=== PATIENT | female | born 1950 | race Caucasian/White ===

== ENCOUNTER 2017-12-05 21:40 | Emergency (ER) | payer BC, OTHER ==
[~2017-12-05] VITALS: Ht 160 cm; Wt 75.3 kg
[~2017-12-05 21:40] MED LIST: PREMARIN; PROGESTERONE; SULF800T23 PO
[2017-12-05 22:07] VITALS: TEMP 37.2; Ht 160 cm; Wt 75.3 kg
[2017-12-05] MEDS ORDERED: AMOXICILLIN/CLAVULANATE TAB 875 MG TAB PO ONE (22:30)
--- NOTE | 2017-12-05 22:54 | DIAGNOSTIC IMAGING REPORT ---
RIGHT HAND 3 VIEWS HISTORY: bite on R hand COMPARISON: None. FINDINGS: There is no fracture or dislocation. Mild dorsal soft tissue swelling. No radiopaque foreign bodies. IMPRESSION: No fractures. Electronically signed by: Kwadwo Lazar M.D. 12/05/2017 10:53 PM Dictated Date/Time: 12/05/2017 10:52 PM
--- NOTE | 2017-12-05 23:04 | EMERGENCY ROOM VISIT NOTE ---
ED Visit Note First contact with patient: 22:16 CHIEF COMPLAINT: Animal bite HISTORY OF PRESENT ILLNESS: This 67-year-old female presents the emergency department with complaints of a cat bite to her right hand that occurred prior to arrival. The patient said that her cat bit her on the hand 3 times. She does complain of pain over the dorsal aspect of the right hand. She denies any fever or chills. She cleaned the wound with soap and water and apply Neosporin. The cat is up-to-date on his vaccines. Tetanus shot is up-to-date. She is taking naproxen for pain REVIEW OF SYSTEMS: A 6 system review of systems was completed with positives and pertinent negatives listed in the HPI. ALLERGIES: Macrobid, sulfa MEDICATIONS: Reviewed PMH: Otherwise healthy PHYSICAL EXAM: Vital Signs reviewed, see Nurse's notes, vital signs stable. GENERAL: 67-year-old female, awake, alert, well appearing, no acute distress. Non toxic in appearance. MUSCULOSKELETAL: 4 puncture wounds noted to the dorsal aspect of the right hand. One puncture wound noted to the palmar aspect of the right hand. Normal flexion and extension against resistance. Coconut Cooker strength 5/5. Radial pulse +2. Capillary refill is less than 2 seconds. Normal sensation. No significant erythema or edema surrounding the puncture wounds. NEURO: No sensory or motor deficits noted over all dermatomes and myotomes tested. EMERGENCY DEPARTMENT COURSE AND DECISION MAKING: I examined the patient. An x-ray of the right hand was obtained. IMPRESSION: No fractures. Electronically signed by: Kwadwo Lazar M.D. 12/05/2017 10:53 PM The wound was cleansed with chlorhexidine. She was given 1 dose of Augmentin. Discharge instructions were reviewed, and they were discharged in good condition DIAGNOSIS: Cat bite DISCHARGED INSTRUCTIONS: Please take the entire course of antibiotics Please clean the wound twice daily with soap and water. Apply Neosporin. Keep a bandage on the wounds for the first 2 days. Then, please leave open to air. Please have the wounds rechecked in the next 3-5 days. Do not hesitate to return to the emergency department with any new, worsening or concerning symptoms; especially, increased redness, swelling, red streaking, pain or fever This chart was completed in part utilizing [employer] Voice Recognition software. Attempts were made to minimize the grammatical errors, random word insertions, pronoun errors and incomplete sentences. Any formal questions or concerns about the content, text or information contained within the body of this dictation should be directly addressed to the provider for clarification.
[2017-12-05] MEDS ORDERED: AMOX875T PO (23:06)
[2017-12-05 23:12] VITALS: BP 136/90; PULSE 84; O2SAT 99
== END 2017-12-05 23:13 | disposition home or self-care (01) ==
LOC: C.EDB 21:41 → C.EDD 23:13
DX: S61.451A Open bite of right hand, initial encounter (principal); W55.01XA Bitten by cat, initial encounter

== ENCOUNTER 2022-11-28 05:46 | Observation (INO) ==
--- NOTE | 2022-10-19 14:30 | PAT Medication Instructions ---
Medication Instructions Date of Service October 19, 2022 Home Medications ibuprofen 200 mg tablet 200 mg PO Q6H PRN Pain omeprazole 20 mg tablet,delayed release 20 mg PO QAM PRN Acid Reflux fluticasone propionate 50 mcg/actuation nasal spray,suspension 1 spray intranasal DAILY PRN Nasal Congestion glucosamine-chondroitin 250 mg-200 mg tablet (Osteo Bi-Flex) 1 tab PO BID ASK your surgeon for instructions ibuprofen 200 mg tablet 200 mg PO Q6H PRN Pain STOP taking 2 weeks before surgery glucosamine-chondroitin 250 mg-200 mg tablet (Osteo Bi-Flex) 1 tab PO BID Take morning of surgery With a small sip of water, OTHERWISE NOTHING TO EAT OR DRINK AFTER MIDNIGHT: omeprazole 20 mg tablet,delayed release 20 mg PO QAM PRN Acid Reflux (if needed) fluticasone propionate 50 mcg/actuation nasal spray,suspension 1 spray intranasal DAILY PRN Nasal Congestion (if needed) Other Notes If you have any questions please call us at [phone] or [phone] or [phone] or [phone]
--- NOTE | 2022-10-24 10:00 | Anesthesiology Consultation ---
Date of Service October 24, 2022 Assessment & Plan (1) Encounter for pre-operative examination: Chart Review Chart Review: Acceptable Risk for Surgery and Patient seen in Pre Admission Testing - Discussed with Dr. Mason. Pt currently scheduled as 23 hour observation - if surgeon decided to change patient to Outpatient Joint- patient is an acceptable candidate from anesthesia standpoint, pending patient is motivated, has good support and surgeon's office completes [facility] preop requirements. Per PAT appt on 10/24/22, patient denies any recent travel or large group activities. Pt is vaccinated for Covid. Pt exposed to friend on 10/12/22 that tested Covid positive 10/18/22. Pt has had no symptoms (has been >10 days since exposure). Will leave to surgeon's discretion if preop Covid testing needed. Educated on importance of using Covid precautions one week prior to surgery Left knee arthroscopy, partial medial and lateral meniscectomy, possible loose body removal 02/28/22 (at [facility]) = Done under [place] with LMA #4. Atraumatic attempt. Teaching & Discussion Pre-Anesthesia Teaching/Discussion Notes: Instructed NPO after midnight before surgery,except medications with 15 cc of water. Medication instructions provided according to the PAT guidelines. History Surgery Operation Date: 11/28/22 09:25 Proposed Procedures p Left Total Knee Arthroplasty - Neftali Johnson DO Height/Weight Height: 5 ft 8 in Weight: 73.9 kg Allergies Allergy/AdvReac Type Severity Reaction Status Date / Time nitrofurantoin AdvReac Mild Nausea/ Verified 10/19/22 12:48 Headache sulfamethoxazole AdvReac Mild Nausea/ Verified 10/19/22 12:48 [From Bactrim] Headache trimethoprim [From Bactrim] AdvReac Mild Nausea/ Verified 10/19/22 12:48 Headache Medications Home Medications Medication Instructions Recorded Confirmed Last Taken ibuprofen 200 mg tablet 200 mg PO Q6H PRN Pain 10/08/20 10/19/22 02/25/22 omeprazole 20 mg tablet,delayed 20 mg PO QAM PRN Acid Reflux 02/24/22 10/19/22 02/27/22 release fluticasone propionate 50 1 spray intranasal DAILY PRN Nasal 10/19/22 10/19/22 Unknown mcg/actuation nasal Congestion spray,suspension glucosamine-chondroitin 250 mg-200 1 tab PO BID 10/19/22 10/19/22 Unknown mg tablet (Osteo Bi-Flex) Past Medical History Medical History (Updated 10/24/22 @ 09:57 by Josephine Costa PA-C) Acid reflux Well controlled and stable Adenoma HX THRYOID ADENOMA- S/P REMOVAL ()- No issues since that time Varicose veins of both lower extremities Exercise / Class Metabolic Activity II 4-5 Yardwork/Stairs/Walk up hill (one flight of stairs - no chest pain or SOB ) Past Family History Family History Other No family history of adverse response to anesthesia Past Surgical History Surgical History History of cataract surgery R&L History of colonoscopy History of foot surgery R&L History of thyroidectomy PARTIAL History of tubal ligation History of vascular surgery "PHLEBECTOMY" - LEFT LEG S/P left knee arthroscopy p Left Knee Arthroscopy, Partial Medial and Lateral Meniscectomy, Extensive Debridement DOS 02/28/2022 Past Anesthesia History No Hx of Anesthesia Complications and No Family Hx of Anesthesia Complications History of PONV No Hx of PONV and No Hx of Motion Sickness Social History Smoking Status: Former smoker tobacco type: cigarettes Do You Dip or Chew Tobacco: No Smoking End Date: quit 2010 Hx Alcohol Use: Yes alcohol intake frequency: holidays/special occasions only Hx Substance Use: No substance use type: does not use Review of Systems Hx of snoring - no witnessed apnea- no hx of sleep study Patient denies chest pain, shortness of breath, dyspnea on exertion, cough, wheezing, palpitations. No hx of seizures, stroke, HI. No hx of blood clots or blood transfusions Physical Exam Vital Signs VITALS BP 98/68 (manually- baseline for patient- denies dizziness or syncope) P 81 TEMP 97.3 SP02 96% RESP16 Constitutional no acute distress ENMT Mouth: no TMJ clicking Thyromental Distance: > or= 3.5 Finger Breadths (3.5) Mallampati Class: I Neck + limited neck extension Respiratory normal respiratory effort; no respiratory distress Auscultation: lungs clear to auscultation bilaterally; no wheezes Cardiovascular Rate/Rhythm: regular rate and regular rhythm Heart Sounds: no murmur Vessels: no carotid bruit Musculoskeletal Spine: + pain with cervical ROM Extremities: extremities normal to inspection Psychiatric Orientation: alert Lab Results Anesthesia Preop Results Results Anesthesia Widget: WBC 6.20 K/ul (4.8-10.8) 10/24/22 Hgb 14.4 g/dl (12.0-16.0) 10/24/22 Hct 43.7 % (34.1-44.9) 10/24/22 Plt 244 K/uL (130-400) 10/24/22 Na 143 mmol/L (136-145) 10/24/22 K 4.0 mmol/L (3.5-5.1) 10/24/22 Cl 110 mmol/L (98-107) H 10/24/22 CO2 27 mmol/L (21-32) 10/24/22 BUN 23 mg/dl (6-23) 10/24/22 Creat 1.07 mg/dl (0.6-1.2) 10/24/22 Glucose Level 81 mg/dl (70-99(Fasting)) 10/24/22 PT 10.9 Seconds (9.0-12.0) 10/24/22 PTT 27.3 Seconds (21.0-31.0) 10/24/22 INR 1.0 (0.9-1.1) 10/24/22 Blood Type B Positive 10/24/22 Antibody Screen NEGATIVE 10/24/22 Testing Electrocardiogram Date: 02/09/22 Findings: + SB @ (59bpm ) Otherwise normal EKG per cardio. Chest X-Ray Date: 10/24/22 Findings: + NAD COVID-19 Risk Screen Screening Information COVID-19 Screen Date: 10/24/22 Exposure 21 Days Family/Household +COVID Last 21 Days: No Exposure 10 Days Any COVID Exposure Last 10 Days: No Symptoms Last 10 Days Experienced COVID Sx Last 10 Days: No + COVID 0-90 Days COVID + in Last 0-90 Days: No Risk Plan COVID Risk Plan: No Risk Identified Patient Education COVID Preop Screening Education Complete: Yes
--- NOTE | 2022-11-23 15:02 | History & Physical Report ---
Date of Service November 23, 2022 Assessment & Plan (1) Osteoarthritis of left knee: Plan We will proceed with a left total knee arthroplasty. Postoperatively she will be started on aspirin for DVT prophylaxis and kept overnight in the hospital for postoperative medical management. She plans to use energy physical therapy upon discharge.. History of Present Illness Chief Complaint: Osteoarthritis of the left knee. Primary Care Provider: Natalya Reyez MD Arlette is a pleasant 71-year-old female who has been dealing with chronic worsening left knee pain. She is being treated by my partner Dr. Jin. He recently did a knee arthroplasty on her and this showed extensive chondromalacia. She has not responded well since the knee arthroscopy. She has had cortisone injections. She has been doing physical therapy. After failing conservative treatment, she has elected to proceed with a left total knee arthroplasty. Allergies Allergy/AdvReac Type Severity Reaction Status Date / Time nitrofurantoin AdvReac Mild Nausea/ Verified 10/19/22 12:48 Headache sulfamethoxazole AdvReac Mild Nausea/ Verified 10/19/22 12:48 [From Bactrim] Headache trimethoprim [From Bactrim] AdvReac Mild Nausea/ Verified 10/19/22 12:48 Headache Home Medications Medication Instructions Recorded Confirmed Type ibuprofen 200 mg tablet 200 mg PO Q6H PRN Pain 10/08/20 10/19/22 History omeprazole 20 mg tablet,delayed 20 mg PO QAM PRN Acid Reflux 02/24/22 10/19/22 History release fluticasone propionate 50 1 spray intranasal DAILY PRN Nasal 10/19/22 10/19/22 History mcg/actuation nasal Congestion spray,suspension glucosamine-chondroitin 250 mg-200 1 tab PO BID 10/19/22 10/19/22 History mg tablet (Osteo Bi-Flex) Past Med/Surg History Medical History Acid reflux Well controlled and stable Adenoma HX THRYOID ADENOMA- S/P REMOVAL ()- No issues since that time Varicose veins of both lower extremities Surgical History History of cataract surgery R&L History of colonoscopy History of foot surgery R&L History of thyroidectomy PARTIAL History of tubal ligation History of vascular surgery "PHLEBECTOMY" - LEFT LEG S/P left knee arthroscopy p Left Knee Arthroscopy, Partial Medial and Lateral Meniscectomy, Extensive Debridement DOS 02/28/2022 Family History Other No family history of adverse response to anesthesia Social History Smoking Status: Former smoker Second Hand Exposure: No; Hx Alcohol Use: Yes Hx Substance Use: No Preferred Language: Occitan Communication Ability: Effective Ssn/Ssbn Assistant Navigator Required: No Beliefs That Will Affect Care: None marital status: Current Living Situation: Spouse current occupational status: retired Feels Safe at Home: Yes Assistive Devices: None Review of Systems All systems reviewed & are unremarkable except as noted in HPI & below. Physical Exam On physical examination of the left knee, she has a slight varus deformity. She is range of motion from 0 to 120 degrees. She has no instability. She has pain of the distal medial femoral condyle and over the medial joint line. Constitutional WD/WN, vitals as above Eyes PERRL, conjunctivae normal, anicteric sclerae ENMT external ear and nose normal, oropharynx normal Neck trachea midline, no thyromegaly Respiratory normal respiratory effort, lungs clear to auscultation Cardiovascular RRR, no murmur, no edema Gastrointestinal (Abdomen) normal bowel sounds, soft, nontender, no hepatosplenomegaly Skin no rashes, warm and dry Psychiatric A+Ox3, euthymic affect Results & Data Results & Data Laboratory Results . Diagnostic Findings X-rays of the left knee show some moderate medial compartment arthritis with joint space narrowing.. PG Care Time/CCT Total # of Minutes Spent Total Time Spent with Patient: Total time spent is greater than 50% in coordination of care (as documented) at patient's floor/unit and/or counseling patient: Coding Level of Care Code None Diagnoses Osteoarthritis of left knee M17.12
[2022-11-28] MEDS ORDERED: TRANEXAMIC ACID 1,000 MG **IV Pre-op IV SCH (06:00)
[2022-11-28] MEDS ORDERED: ACETAMINOPHEN 500 MG TAB PO SCH (06:00)
[2022-11-28] MEDS ORDERED: LR 500ML BOLUS, THEN 15ML/HR IV SCH (06:00)
[2022-11-28] MEDS ORDERED: GABAPENTIN 300 MG CAP PO SCH (06:00)
[2022-11-28] MEDS ORDERED: TRANEXAMIC ACID 1,000 MG **IV Intra-op IV SCH (06:00)
[2022-11-28] MEDS ORDERED: ORTHO JOINT MIX INFIL SCH (06:00)
[2022-11-28] MEDS ORDERED: LR 60ML/HR IV SCH (06:00)
[2022-11-28] MEDS ORDERED: ceFAZolin 2000MG 2,000 MG/15 ML SYR IV SCH (06:00)
[2022-11-28] MEDS ORDERED: dexAMETHasone 4 MG TAB PO SCH (06:00)
[2022-11-28] MEDS ORDERED: FAMOTIDINE 20 MG TAB PO SCH (06:00)
--- NOTE | 2022-11-28 06:23 | History & Physical Bridge Note ---
Date of Service November 28, 2022 History & Physical Bridge Note I have examined the patient, reviewed the History & Physical and in the interval since the performance of the History & Physical I have noted the following changes of clinical significance: no changes noted
[2022-11-28] MEDS ORDERED: ROPIVACAINE 0.5% 5 MG/ML 30 ML VIAL ONE (06:25)
[2022-11-28] MEDS ORDERED: BUPIVACAINE 0.5 % 5 MG/1 ML PF 10ML VIAL ONE (06:25)
[2022-11-28] MEDS ORDERED: fentaNYL citrate 100 MCG/2 ML VIAL IV PRN (07:06)
[2022-11-28] MEDS ORDERED: ePHEDrine sulfate 50 MG/ML AMP IV PRN (07:06)
[2022-11-28] MEDS ORDERED: ATROPINE SULFATE 0.1 MG/ML 10ML SYR IV PRN (07:06)
[2022-11-28] MEDS ORDERED: ONDANSETRON INJ 2 MG/ML 2 ML VIAL IV PRN ×2 (07:06→13:06)
[2022-11-28] MEDS ORDERED: ORTHO JOINT ANESTHETIC ONE (07:12)
[2022-11-28] MEDS ORDERED: MIDAZOLAM HCL 1 MG/ML 2ML VIAL ONE ×2 (07:55→09:44)
[2022-11-28] MEDS ORDERED: PROPOFOL IV EMULSION 10 MG/ML 20 ML VIAL IV ONE (10:28)
[2022-11-28] MEDS ORDERED: ONDANSETRON INJ 2 MG/ML 2 ML VIAL ONE (10:28)
--- NOTE | 2022-11-28 11:01 | Operative Report ---
PG Post Operative Report Pre & Post Diagnosis Operation Date: 11/28/22 08:25 Pre-Op Diagnosis: Osteoarthritis of left knee Post-Op Diagnosis: Osteoarthritis of left knee I identified the patient and participated in the time-out.: Yes Procedure Operation Date: 11/28/22 08:25 Actual Procedures p Left Total Knee Arthroplasty(Left) - Neftali Johnson DO Surgeon Neftali Johnson DO Client Professional Neftali Geller PA-C Estimated Blood Loss 30 Findings Consistent with Post-Op Diagnosis Specimens Left femoral and tibial bone Description of Procedure Implants used: I used a Marivel Persona total knee arthroplasty system with a size 8 standard femur, E tibia, 31 oval patella, and a size 11 medial congruent polyethylene bearing. All components were cemented in place with Biomet cement. Arlette arrived [facility] for the above procedure. She was seen in the preoperative holding area and the operative extremity was identified and signed. She was given a preoperative antibiotic, TXA, a spinal anesthetic and an adductor nerve block. She was taken back to the operating room and laid on the table in supine position. She was given basic sedation. The operative knee was then prepped and draped in sterile fashion. A timeout was done, and the patient and the operative extremity was properly identified. A midline incision was made directly over the patella. Dissection was taken down to the extensor mechanism. A midvastus arthrotomy was used. The medial retinaculum was released and the fat pad was mostly excised. The knee was flexed and the ACL, PCL, and meniscus were removed. A drill was sent down the center of the femoral canal followed by an intramedullary adilson. Off that adilson a distal femoral cutting block was placed. 9 mm was resected off the distal femur at 5 of valgus. A posterior referencing AP sizing guide was then placed on the distal femur. The femur measured to be a size 8. 2 drill holes were placed in 3 of external rotation. A 4-in-1 cutting block was then impacted into place. Anterior, posterior, and chamfer cuts were then made. The proximal tibia was then exposed. An external tibial alignment guide was placed. A tibial cut guide was then anchored in place and the proximal tibia was then resected. The posterior aspect of the knee was then opened up and any additional meniscus fragments and osteophytes were removed. The tibia measured to be a size E. The tibial plate was then placed in the appropriate rotation and the tibia was drilled and punched. Trial components were then placed. I used a size 11 medial congruent polyethylene insert. The knee was brought through a full range of motion and felt to be stable. The peg holes for the femoral component were then drilled. The patella was then everted and 9 mm was resected off the posterior aspect of the patella. The patella measured to be a size 31 oval. 3 peg holes were then drilled. A trial patella was placed. The knee was once again brought through a full range of motion and felt to be stable. Trial components were then removed. The surrounding soft tissues were injected with 100 cc of an orthopedic pain control cocktail. All components were then cemented into place with Biomet cement. The final polyethylene insert was then snapped into place. Once cement was dry the tourniquet was deflated. Hemostasis was obtained. A dilute betadyne lavage was then done for 3 minutes. The joint was then irrigated with normal saline solution. The midvastus arthrotomy was then closed with #1 Vicryl suture. The skin was closed with 2-0 Vicryl, 3-0V lock suture, and garret. A soft compressive dressing was placed. She was then transferred to a hospital bed and taken to the postanesthesia care unit in stable condition. She tolerated the procedure well. Neftali Geller PA-C, was present for the entire procedure. He was critical for patient positioning, prepping, draping, retraction exposure, wound closure and application of sterile dressing. I attest to the content of the Intraoperative Record and any orders documented therein. Any exceptions are noted below.
--- NOTE | 2022-11-28 12:19 | XRay Report ---
LEFT KNEE 2 VIEWS History: Left total knee arthroplasty. Degenerative arthritis. Postop. FINDINGS: The patient is status post a left total knee arthroplasty. The hardware is intact. No fract ure or dislocation. Skin garret are in place. IMPRESSION: Left total knee arthroplasty. No evidence for hardware complication. ACT 112: Negative or not required by law. Electronically signed by: Kwadwo Lazar M.D. 11/28/2022 12:18 PM
--- NOTE | 2022-11-28 12:41 | Anesthesiology Progress Note ---
Date of Service November 28, 2022 Anesthesia Post Procedure Vital Signs Vital Signs: Temp Pulse Resp BP Pulse Ox O2 Del Method O2 Flow Rate 11/28/22 12:20 58 L 18 91/63 L 94 Room Air 11/28/22 12:05 97.5 F L 66 13 97/70 L 96 Room Air 11/28/22 11:55 72 17 103/78 92 Room Air 11/28/22 11:45 67 16 92/67 L 93 Room Air 11/28/22 11:35 74 14 98/66 L 92 Room Air 11/28/22 11:25 70 10 L 91/67 L 98 Oxymask 6 11/28/22 11:19 98.2 F 85 14 92/63 L 96 Oxymask 6 11/28/22 06:23 98.2 F 62 18 124/85 96 Room Air Transfer of Care Handoff Completed per policy Notes Mental Status: alert / awake / arousable and participated in evaluation Patient Amnestic to Procedure: Yes Nausea / Vomiting: adequately controlled Pain: adequately controlled Airway Patency, RR, SpO2: stable & adequate BP & HR: stable & adequate Hydration State: stable & adequate Neuraxial Anesthesia: was administered and sensory block is resolving Anesthetic Complications: no major complications apparent and Pt Satisfied with anesthetic care
[2022-11-28] MEDS ORDERED: SODIUM CHLORIDE 0.9% 1000ML 1,000 ML IV SCH (13:06)
[2022-11-28] MEDS ORDERED: HYDROmorphone INJ 0.5 MG/0.5 ML SYR IV PRN (13:06)
[2022-11-28] MEDS ORDERED: MAGNESIUM HYDROXIDE SUSP 30 ML UDC PO PRN (13:06)
[2022-11-28] MEDS ORDERED: bisacodyL 10 MG SUPP PR PRN (13:06)
[2022-11-28] MEDS ORDERED: METOCLOPRAMIDE HCL INJ 5 MG/ML 2 ML VIAL IV PRN (13:06)
[2022-11-28] MEDS ORDERED: NALOXONE HCL 0.4 MG/1 ML VIAL/CARP IV PRN (13:06)
[2022-11-28] MEDS ORDERED: FLUTICASONE PROPIONATE NA SPR 16 GM BTL NAE PRN (13:27)
[2022-11-28] MEDS: ACETAMINOPHEN 500 MG TAB PO SCH ×2 (14:44→21:10)
[2022-11-28] MEDS: KETOROLAC TROMETHAMINE 15 MG/ML VIAL IV SCH ×2 (14:44→19:31)
[2022-11-28] MEDS: ceFAZolin 2000MG 2,000 MG/15 ML SYR IV SCH (17:56)
[2022-11-28] MEDS: diphenhydrAMINE Capsule 25 MG CAP PO SCH (20:34)
[2022-11-28] MEDS: DOCUSATE SODIUM 100 MG CAP PO SCH (20:40)
[2022-11-28] MEDS: ASPIRIN 81 MG ECTAB PO SCH (21:10)
[2022-11-28] MEDS: SENNA 8.6 MG TAB PO SCH (21:10)
[2022-11-29] MEDS: oxyCODONE HCL IR 5 MG TAB (IMMEDIATE RELEASE) PO PRN ×3 (01:41→21:39)
[2022-11-29] MEDS: ceFAZolin 2000MG 2,000 MG/15 ML SYR IV SCH (01:41)
[2022-11-29] MEDS: KETOROLAC TROMETHAMINE 15 MG/ML VIAL IV SCH ×4 (01:41→20:05)
[2022-11-29] MEDS: ACETAMINOPHEN 500 MG TAB PO SCH ×3 (05:35→21:39)
--- NOTE | 2022-11-29 06:50 | Orthopedic Progress Note ---
Date of Service November 29, 2022 Assessment & Plan (1) Status post left knee replacement: Overall she is doing well. She is not having much pain in the left knee. She will be seen by therapy today for ambulation and range of motion exercises. She is on aspirin for DVT prophylaxis. She does not feel comfortable returning home today. She does not have much help at home. I think it is reasonable to schedule discharge to home for tomorrow morning if she is doing well. Michelle Chong was seen and examined at bedside this morning. Overall she is doing well. She is having too much pain in the left knee. She has been up and ambulating to the bathroom. She has no complaints.. Review of Systems All systems reviewed & are unremarkable except as noted in HPI & below. Physical Exam On physical examination of the left knee, the dressing is clean and dry. Her leg is out full extension. She has active dorsiflexion plantarflexion of her left ankle.. Results & Data Results & Data Laboratory Results . Diagnostic Findings Postoperative x-rays of the left knee show the prosthesis to be in anatomic alignment without any evidence of fracture, desiccation, or loosening. PG Care Time/CCT Total # of Minutes Spent Total Time Spent with Patient: Total time spent is greater than 50% in coordination of care (as documented) at patient's floor/unit and/or counseling patient: Coding Level of Care Code 61941 Post Operative Follow-Up Diagnoses Status post left knee replacement Z96.652
[2022-11-29] MEDS ORDERED: dexAMETHasone 4 MG TAB PO SCH (08:00)
[2022-11-29] MEDS: ASPIRIN 81 MG ECTAB PO SCH ×2 (11:20→20:05)
[2022-11-29] MEDS: MULTIVITAMIN TAB PO SCH (11:21)
[2022-11-29] MEDS: DOCUSATE SODIUM 100 MG CAP PO SCH ×2 (11:21→20:06)
[2022-11-29] MEDS: SENNA 8.6 MG TAB PO SCH (20:05)
[2022-11-29] MEDS: diphenhydrAMINE Capsule 25 MG CAP PO SCH (20:06)
[2022-11-30] MEDS: KETOROLAC TROMETHAMINE 15 MG/ML VIAL IV SCH ×2 (01:17→06:20)
[2022-11-30] MEDS: ACETAMINOPHEN 500 MG TAB PO SCH ×2 (05:30→13:09)
[2022-11-30] MEDS: DOCUSATE SODIUM 100 MG CAP PO SCH (08:27)
[2022-11-30] MEDS: MULTIVITAMIN TAB PO SCH (08:27)
[2022-11-30] MEDS: ASPIRIN 81 MG ECTAB PO SCH (08:27)
--- NOTE | 2022-11-30 16:11 | Orthopedic Progress Note ---
Date of Service November 30, 2022 Assessment & Plan (1) Status post left knee replacement: Overall she is doing well. She is not having much pain in the left knee. She will be seen by physical therapy again today for ambulation and range of motion exercises. She can be discharged home later today. She is on aspirin for DVT prophylaxis. She will follow-up with orthopedics in 2 weeks. Michelle Chong was seen and examined at bedside this morning. Overall she is doing very well. She is not having much pain in the left knee. She was up and ambulating with physical therapy yesterday. She has no complaints.. Review of Systems All systems reviewed & are unremarkable except as noted in HPI & below. Physical Exam On physical examination of the left knee, the dressing is clean and dry. Her leg is out in full extension. She has active dorsiflexion plantarflexion of her left ankle.. Results & Data Results & Data Laboratory Results . Diagnostic Findings . PG Care Time/CCT Total # of Minutes Spent Total Time Spent with Patient: Total time spent is greater than 50% in coordination of care (as documented) at patient's floor/unit and/or counseling patient: Coding Level of Care Code 35199 Post Operative Follow-Up Diagnoses Status post left knee replacement Z96.652
--- NOTE | 2022-11-30 16:12 | Discharge Summary ---
Date of Service November 30, 2022 Principal Diagnosis Same as "Discharge Diagnosis" noted below under Discharge Instructions. Discharge Exam On physical examination of the left knee, the dressing is clean and dry. Her leg is out in full extension. She has active dorsiflexion plantarflexion of her left ankle.. Discharge Data Procedures Performed Operation Date: 11/28/22 08:25 Actual Procedures p Left Total Knee Arthroplasty(Left) - Neftali Johnson DO Ordered Studies 11/28/22 05:00 US - OR guided needle placemen Routine Hospital Course (1) Status post left knee replacement: On November 28, 2022 Arlette arrived at [facility] and underwent a left knee replacement without complication. She had a spinal anesthetic. Postoperatively she was started on aspirin for DVT prophylaxis and transferred to the general orthopedic floors. Her hospital course was uneventful. On postop day #1, her vital signs were stable and her pain was well controlled. She was able to participate well with physical therapy doing ambulation and range of motion exercises. On postop day #2, she continued to do well. She was seen once again by physical therapy. She was then discharged home. She will follow-up with orthopedics in 2 weeks. PG Care Time/CCT Total # of Minutes Spent Total Time Spent with Patient: Total time spent is greater than 50% in coordination of care (as documented) at patient's floor/unit and/or counseling patient: Discharge Plan Discharge Items Patient Disposition: Home - Home Health Services Reason For Visit: POST OP Discharge Diagnosis: Status post left knee replacement Activity: Per Instructions section Non-emergency contact: Surgeon Call non-emergency contact if: your wound has increased redness and your wound has increased drainage Follow-up/Referrals: Natalya Reyez MD [Primary Care Provider] - Diet: Regular Addtl Attending Provider Instructions: Activity and Therapy Recommendations: * If you are using [facility] then therapy will be provided at your home until they feel you have accomplished all of your goals. * If you are using [facility] then Physical Therapy will be provided until they feel you are ready to start Outpatient Physical Therapy. * If you are not using home therapy then Outpatient Physical Therapy should start about 3-5 days from your day of surgery. Therapy will last about 6-10 weeks * It is important not to put a pillow under your knee when you are relaxing or sleeping. It is just as important to make sure you are getting your knee perfectly straight as it is to regain your knee bend. * You were shown a series of exercises in the hospital. Do these exercises three times each day including the exercises you were shown in physical therapy. * Get up and walk several times each day. For the first four weeks, try not to stand or walk for more than one hour at a time. If you do stand or walk for more than one hour, you will not hurt anything, but your leg will likely swell. * As you feel comfortable, you may change from the walker or crutches to a cane and then to independent walking. Medications: * Narcotic You will likely be sent home from the hospital with a prescription for the narcotic pain medication that worked best throughout your stay. * Aspirin Most patients will be required to take Aspirin 81mg twice a day for 6 weeks after surgery. This is obtained [id number] and a prescription is not necessary. * Other medications may be prescribed for specific circumstances. If you have any questions, please call the office at . * Resume previous home medications unless otherwise instructed TEDs/Elastic Stockings: The white elastic stockings help limit swelling and prevent blood clots from forming in your legs.~ The more you wear them, the more they work. Wear them for six weeks. Dressing Care: The dressing can be changed after physical therapy on postop day #1. Daily dry dressing changes for a few days, especially if the incision is still draining some. If the incision is not draining then you may leave the garret open to air. If there is a little bit of drainage or if the garret are getting stuck on your clothing then cover the incision with a dry dressing. The garret will be removed at your 2 week follow-up appointment. Showering: You may shower 5 days from the day of surgery as long as the incision is no longer draining. You may shower with the garret exposed. Let soapy water run over the garret and pat them dry. Do not scrub or soak the incision. Things To Watch For: * Drainage from the incision site that occurs more than one week after your surgery. * Increased redness at the incision site. * Fever above 102 degrees Fahrenheit. * Unusual chest pain or shortness of breath. * Call [facility] at with any of the above problems Follow-Up Visit: Follow-up with Dr. Johnson's PA (Neftali Geller) 2-3 weeks after your day of surgery. He will remove your garret and answer any questions. If you have any additional questions or concerns, Dr Johnson is usually in the office at the same time and will be available An appointment was probably scheduled when you signed-up for surgery in the office. If you have any questions call Office Instructions: More detailed instructions as well as Frequently Asked Questions were provided in a folder by our office when you signed-up for surgery. Please review these instructions when you get home. If you have any further questions or concerns, please feel free to call the office at [phone] Pending Studies at Discharge: No Stand-Alone Forms: [facility] Medications and DC Order Prescriptions: New aspirin 81 mg Tablet,Delayed Release (Dr/Ec) 81 mg PO BID 42 Days Qty: 84 0RF oxycodone-acetaminophen 5-325 mg tablet 1 tab PO Q6H PRN (Reason: pain) Qty: 30 0RF Continued ibuprofen 200 mg Tablet 200 mg PO Q6H PRN (Reason: Pain) omeprazole 20 mg Tablet,Delayed Release (Dr/Ec) 20 mg PO QAM PRN (Reason: Acid Reflux) glucosamine-chondroitin [Osteo Bi-Flex] 250-200 mg Tablet 1 tab PO BID Rx Instructions: give after food/meal fluticasone propionate 50 mcg/actuation [place],Suspension 1 spray INTRANASAL DAILY PRN (Reason: Nasal Congestion) Rx Instructions: administer into each nostril calcium-vitamin D3-vitamin K 500-100-40 mg-unit-mcg Tablet,Chewable 1 tab PO DAILY Krames/Other Patient Handouts: Falls Prevent Adjust Living Space Admission Data Admit Date/Time: 11/28/22 11:20 Attending Provider: Neftali Johnson Admit Provider: Neftali Johnson Primary Care Provider: Natalya Reyez Other Interventions: Discharge Summary Assessment (RN) Last Done: 11/30/22 13:25
== END 2022-11-30 14:20 | disposition home health service (06) ==
LOC: 3E 05:46 → ASU 05:46